=== PATIENT | female | born 1950 | race Caucasian/White ===

== ENCOUNTER → 2023-08-30 11:23 | Outpatient (REF) | payer MEDICARE, OTHER, SELFPAY | LOC: HWRAD 11:23 | PROVIDERS: ATTENDING PHYSICIAN Internal Medicine | DX: I38 Endocarditis, valve unspecified (principal); I10 Essential (primary) hypertension | CPT/HCPCS: 75571 ==

== ENCOUNTER → 2023-09-13 06:43 | Outpatient (REF) | payer MEDICARE, OTHER, SELFPAY | LOC: RAD 06:43 | PROVIDERS: ATTENDING PHYSICIAN Internal Medicine | DX: R09.89 Other specified symptoms and signs involving the circulatory and respiratory systems (principal) | CPT/HCPCS: 76770 ==

== ENCOUNTER → 2023-09-17 08:04 | Outpatient (REF) | payer MEDICARE, OTHER, SELFPAY | LOC: DHCBC HW 08:04 | PROVIDERS: ATTENDING PHYSICIAN Internal Medicine Cardiovascular Disease; FAMILY PHYSICIAN Internal Medicine | DX: R03.0 Elevated blood-pressure reading, without diagnosis of hypertension (principal); I35.1 Nonrheumatic aortic (valve) insufficiency | CPT/HCPCS: 93306 ==

== ENCOUNTER 2023-11-04 10:51 | Emergency (ER) | payer MEDICARE, OTHER, SELFPAY ==
[2023-11-04] VITALS (16 sets, daily range): BP systolic 119–180; BP diastolic 62–110
--- NOTE | 2023-11-04 11:29 | ED.GENMED ---
History of Present Illness
General
Chief Complaint: Fall
Source: patient
Exam Limitations: none
Time Seen by Provider: 11/04/23 11:15
Travel History
Have you had any contact with someone who has COVID-19?: No
Do you have any symptoms of coronavirus? Fever > 100 degrees, chills, cough, shortness of breath, sore throat, loss of taste or smell, muscle aches, or headache?: No
History of Present Illness
History of Present Illness:
See MDM
Past History
Past History
ED Past Medical History: None
ED Past Surgical History: Orthopedic
Social History
Tobacco: Non-smoker
Alcohol: None
Phy Exam
Physical Exam
Physical Exam:
See MDM
Course
Orders/Labs/Results
Orders:
Orders
11/04/23 10:56
Wrist, Left 3 Views CR [CR Wrist - Left Min 3 Views] Urgent
Comment:
Reason For Exam: pain, trauma
11/04/23 11:24
Wrist, Right 3 Views [CR Wrist - Right Min 3 Views] Urgent
Comment:
Reason For Exam: fall, R wrist pain
11/04/23 11:54
Propofol [Diprivan] 20 ml .ROUTE .STK-MED
11/04/23 12:16
Wrist, Left 2 Views CR [CR Wrist - Left Min 2 Views] Stat
Comment: please perform bedside.
Reason For Exam: reduction
Vital Signs
Initial and Last Documented VS:
Initial Vital Signs
Temp Pulse Resp BP Pulse Ox
98.1 F 70 18 119/62 95
11/04/23 10:55 11/04/23 10:55 11/04/23 10:55 11/04/23 10:55 11/04/23 10:55
Last Documented Vital Signs
Temp Pulse Resp BP Pulse Ox
97.7 F 63 20 160/79 100
11/04/23 12:08 11/04/23 12:25 11/04/23 12:25 11/04/23 12:21 11/04/23 12:25
Procedures
Moderate Sedation
ASA Risk Score: Class II
Chart and allergies reviewed: Yes
Consent for anesthesia obtained: Yes
Time out completed (validating right patient & procedure): Yes
Moderate Sedation Start Time(when first medication is given): 12:07
History of difficult intubation: No
Airway free of obstruction: Yes
Patient has a gag reflex: Yes
Patient is able to open mouth: Yes
Patient has no dentures: Yes
Patient has no loose teeth: Yes
Medication administered by Provider during Moderate Sedation: IV Propofol (mg)
Total dose administered: 100
Time drug administered: 12:09
Moderate Sedation Procedure End Time: 12:21
Joint/Fracture Reduction
Left Distal Radial Wrist:
Indication for procedure:: Distal radius fracture
Procedure completed by: Polo Sandoval DO
Consent form signed: Yes
Joint reduced: with anesthesia sedation
Injury was: closed
Further treatement: needs further treatment
Post reduction exam: unstable
Capillary Refill: normal
Peripheral Pulses: radial (left): 2+
MDM/Problems Addressed
Differential Diagnosis Includes:
HPI and MDM Narrative:
73-year-old female presenting with left wrist injury. Patient tripped and fell while she was walking and she braced her fall with her hands. She complains of bilateral wrist pain but there is an obvious deformity to her left wrist. X-ray was
performed showing concern for fracture. Patient did hit the side of her right head and landed on both knees as well. She denies vomiting or loss of consciousness. I discussed low yield for CT head but I did offer it. Patient and
declined. Patient signed consent for moderate sedation and fracture reduction
Physical exam
General: Well appearing and non-toxic
HEENT: protecting airway. Small abrasion to right face
Neck: appears supple
CV: No evidence of cyanosis
Resp: No accessory muscle use
Abd: Non-distended
Extremities: Dinner fork deformity to left wrist. Decreased range of motion secondary to pain. Distal extremity otherwise neurovascular intact mild tenderness to right distal radius. Abrasions to both knees without bony tenderness
Neuro: alert
Psych: Normal affect
Skin: Intact
Problems Addressed including Acute and Chronic Conditions affecting care:
1. Left distal radius wrist fracture
Acuity: acute
Prognosis:unstable
Details: Patient signed consent for reduction
Updates
Patient tolerated sedation and reduction well. There is still lateral displacement due to the unstable fracture. I also discussed that there is a hairline fracture in the right wrist as well. This already has hardware and will avoid splinting so
she can use it. She will follow-up with her orthopedic
Differential Diagnosis (but not limited to): Fracture, abrasion, contusion
Testing considered: CT head but patient declined
Drug therapy (if applicable): OTC meds, please see d/c instruction regarding Rx drugs
Amount and/or Complexity of Data Reviewed
Clinical info obtained from: Patient
External data reviewed: N/A
Labs I independently reviewed (but not limited to): N/A
Radiology: X-ray independently reviewed: Distal radius fracture to left wrist
Pulse Ox: not hypoxic
EKG independently reviewed: N/A
Supervisor Border Department: N/A
Critical Care: N/A
Risk of Complication:
Social Determinants of health: Good social support
Discussed with other providers: N/A
Escalation of Care includes Admit/Obs: After being observed in the Emergency Department, pt stable for discharge.
Occasional wrong word or 'sound a like' substitutions may have occurred due to the inherent limitations of voice recognition software. Read the chart carefully and recognize, using context, where substitutions have occurred.
*Critical Care Note
Total Time (30-74mins, 75-104mins- exclusive of procedures): Not Applicable
ED Attending Note
-
Portions of this chart may have been created with voice recognition software.� Occasional wrong word or��sound alike� substitutions may have occurred due to the inherent limitations of voice recognition software.
Discharge Plan
Departure
Patient Disposition: Home (Routine Discharge)
Date of Disposition: 11/04/23
Time of Disposition: 12:35
Patient with high blood pressure during this ER visit?: Yes
Discharge Problem:
Distal radius fracture, left
Instructions: Wrist fracture, MODERATE SEDATION ADULT, BLOOD PRESSURE
Prescriptions:
No Action
oxycodone-acetaminophen 5 MG/325 MG tablet
1 tab PO Q4HPRN PRN (Reason: pain) Qty: 10 0RF
levothyroxine 125 MCG tablet
125 mcg PO DAILY AT 0700
Referrals:
Bell Schrader MD [Family Provider] -
Activity Restrictions/Additional Instructions:
Please return for any worsening symptoms.
You may return at any time if you have further concerns.
Please follow up with your Orthopedist at first available appointment.
Thank you for choosing [facility].
Interventions
Interventions:
*Risk Screen - Suicide Last Done: 11/04/23 11:20
*General Assessment Last Done: 11/04/23 11:20
*Neglect/Abuse Screening Last Done: 11/04/23 11:20
ED-Musculoskeletal Assessment Last Done: 11/04/23 11:20
ED- Neurological Assessment Last Done: 11/04/23 11:20
ED-Skin Assessment Last Done: 11/04/23 11:20
Discharge Date and Time
Print Language: SPANISH
== END 2023-11-04 13:10 | disposition home or self-care (01) ==
LOC: EMR 10:51
PROVIDERS: EMERGENCY PHYSICIAN Student in an Organized Health Care Education/Training Program; FAMILY PHYSICIAN Internal Medicine
DX: S52.572A Other intraarticular fracture of lower end of left radius, initial encounter for closed fracture (principal); W19.XXXA Unspecified fall, initial encounter
CPT/HCPCS: 99284; 25605; 99152; 73100; 73110; 96361; 96374; 96375

== ENCOUNTER → 2024-09-29 08:02 | Outpatient (REF) | payer MEDICARE, OTHER, SELFPAY | LOC: HWRCS 08:02 | PROVIDERS: ATTENDING PHYSICIAN Internal Medicine Cardiovascular Disease; FAMILY PHYSICIAN Internal Medicine | DX: I35.1 Nonrheumatic aortic (valve) insufficiency (principal) | CPT/HCPCS: 93306 ==

== ENCOUNTER → 2024-11-23 07:14 | Outpatient (REF) | payer MEDICARE, OTHER, SELFPAY | LOC: RAD 07:14 | PROVIDERS: ATTENDING PHYSICIAN Internal Medicine | DX: R09.89 Other specified symptoms and signs involving the circulatory and respiratory systems (principal) | CPT/HCPCS: 71046 ==

== ENCOUNTER → 2025-04-14 08:19 | Outpatient (REF) | payer MEDICARE, OTHER, SELFPAY | LOC: HWRAD 08:19 | PROVIDERS: ATTENDING PHYSICIAN Internal Medicine Critical Care Medicine; FAMILY PHYSICIAN Internal Medicine | DX: R91.1 Solitary pulmonary nodule (principal) | CPT/HCPCS: 71250 ==

== ENCOUNTER → 2025-05-21 09:34 | Outpatient (REF) | payer MEDICARE, OTHER, SELFPAY | LOC: HWRAD 09:34 | PROVIDERS: ATTENDING PHYSICIAN Internal Medicine Rheumatology; FAMILY PHYSICIAN Internal Medicine | DX: M81.0 Age-related osteoporosis without current pathological fracture (principal) | CPT/HCPCS: 77080 ==